=== PATIENT | male | born 1970 | race Hispanic/Latino ===

== ENCOUNTER 2016-12-16 09:50 | Emergency (ER) | payer SELFPAY ==
[2016-12-16] MEDS ORDERED: Sodium Chloride 0.9% 1,000 ML ONE ×2 (10:06→10:41)
[2016-12-16] MEDS ORDERED: Ondansetron HCl/PF 4 MG/2 ML Vial ONE (10:28)
[2016-12-16] MEDS ORDERED: Pantoprazole 40 MG VIAL ONE (10:28)
[2016-12-16 10:30] LABS: Base Excess 4.3 mEq/L (0 (+/- 2.5)); Hemoglobin (Hb) 19.8 g/dL (13.1-17.2)
[2016-12-16 10:42] LABS: #Basophils 0.1 thou/uL (0.0-0.2); #Eosinphils 0.1 thou/uL (0.0-0.7); #Monocytes 1.1 thou/uL (0.11-0.59); #Neutrophils 11.3 thou/uL (1.40-6.50); %Basophils 0.9 % (0.0-1.0); %Eosinophils 0.7 % (0.0-10.0); %Lymphocytes 13.4 % (21.0-51.0); %Monocytes 7.5 % (0.0-10.0); %Neutrophils 77.4 % (42.0-75.0); Hemoglobin 20.1 g/dL (14.0-18.0); Mean Corpuscular HGB CONC 35.2 g/dL (32.0-36.0); Mean Corpuscular Hemoglobin 29.6 pg (27.0-31.0); Mean Corpuscular Volume 84.1 fl (80.0-94.0); Mean Platelet Volume 9.2 fL (7.4-10.4); Platelet Count 385 thou/uL (130-400); Red Blood Cell (RBC) Count 6.79 mill/uL (4.70-6.10); White Blood Cell (WBC) Count 14.6 thou/uL (4.8-10.8)
[2016-12-16 10:46] LABS: ALT (SGPT) 22 U/L (8-55); AST (SGOT) 19 U/L (5-34); Albumin 5.1 g/dL (3.5-5.0); Alkaline Phosphatase 117 U/L (40-150); Anion Gap 23 mmol/L (10-20); BUN (Urea Nitrogen) 21 mg/dL (8.9-20.6); Bilirubin, Total 1.4 mg/dL (0.2-1.2); Calc. Creatinine Clearance 0 mL/min (70-130); Calcium 10.5 mg/dL (7.8-10.44); Carbon Dioxide 24 mmol/L (22-29); Chloride 89 mmol/L (98-107); Estimated GFR-MDRD 40; Globulin 4.5 g/dL (2.4-3.5); Glucose 447 mg/dL (70-105); Lipase 20 U/L (8-78); Potassium 4.4 mmol/L (3.5-5.1); Protein, Total 9.6 g/dL (6.0-8.3); Sodium 132 mmol/L (136-145)
[2016-12-16] MEDS ORDERED: Insulin Regular 300 UNITS/3 ML VIAL ONE (10:46)
[2016-12-16 10:56] LABS: Troponin I 0.014 ng/mL (< 0.028)
--- NOTE | 2016-12-16 11:30 | CT ---
CT ABDOMEN AND PELVIS WITHOUT CONTRAST: Comparison: None. History: Five episodes of vomiting clear fluids with weakness and abdominal pain in the right side o f the abdomen. Technique: Multiple contiguous axial images were obtained in a CT of the abdomen and pelvis without contrast. Coronal reformats were performed. FINDINGS: The liver, gallbladder, kidneys, adrenal glands, spleen, and pancreas are unremarkable in this limit ed noncontrast examination. No free air, free fluid, or stranding changes are seen in the abdomen or pelvis. The large and small bowel are unremarkable. The appendix is normal. No abdominal or pelvic lymphaden opathy are seen. Mild degenerative changes are seen in the spine. The visualized inferior thorax and abdominal wall s oft tissues are unremarkable. IMPRESSION: No evidence of acute intraabdominal/pelvic abnormality. POS: [facility]
== END 2016-12-16 12:15 | disposition left against medical advice (07) ==
LOC: NAV ERS 09:50
DX: E86.0 Dehydration (principal); N28.9 Disorder of kidney and ureter, unspecified; E11.65 Type 2 diabetes mellitus with hyperglycemia; F17.210 Nicotine dependence, cigarettes, uncomplicated
CPT/HCPCS: 36416; 74176; 80053; 82010; 82248; 82550; 82805; 83690; 84484; 85025; 93005; 96374; 96375; C9113; J1815; J2405; J7050

== ENCOUNTER 2020-04-18 21:30 | Emergency (ER) | payer SELFPAY ==
[~2020-04-18 21:30] MED LIST: Iopamidol 370 76% 100 ML VIAL ONE
[2020-04-18] MEDS ORDERED: Ibuprofen 200 MG TAB ONE (21:53)
[2020-04-18 22:03] LABS: Band 16 % (5-11); Hemoglobin 12.6 g/dL (14.0-18.0); Hypochromia SLIGHT = 6-15 cells (100X) (0-5/hpf); Lymphocytes 14 % (21-51); MDiff Complete? YES; Mean Corpuscular HGB CONC 32.8 g/dL (32.0-36.0); Mean Corpuscular Hemoglobin 33.6 pg (27.0-31.0); Mean Platelet Volume 7.1 fL (7.4-10.4); Metamyelocyte 3 % (0-0); Microcytosis SLIGHT = 6-15 cells (100X) (0-5/hpf); Monocytes 6 % (0-10); Myelocyte 1 % (0-0); Neutrophil 60 % (42-75); Platelet Count 227 thou/uL (130-400); Platelet Morphology Comment Appears Adequate; Red Blood Cell (RBC) Count 3.75 mill/uL (4.70-6.10); White Blood Cell (WBC) Count 21.4 thou/uL (4.8-10.8)
--- NOTE | 2020-04-18 22:08 | RAD ---
XR Chest 1 View Portable HISTORY: Chest pain, cough COMPARISON: None FINDINGS: The heart size is normal. The lungs are without focal areas of consolidation, pneumothorax or pleural effusions. IMPRESSION: No radiographic evidence of acute cardiopulmonary process.
[2020-04-18 22:10] LABS: ALT (SGPT) 66 U/L (8-55); AST (SGOT) 63 U/L (5-34); Albumin 2.4 g/dL (3.5-5.0); Alkaline Phosphatase 625 U/L (40-110); Anion Gap 16 mmol/L (10-20); BUN (Urea Nitrogen) 20 mg/dL (8.9-20.6); Bilirubin, Total 14.8 mg/dL (0.2-1.2); Calc. Creatinine Clearance 0 mL/min (70-130); Calcium 7.9 mg/dL (7.8-10.44); Carbon Dioxide 23 mmol/L (22-29); Chloride 97 mmol/L (98-107); Estimated GFR-MDRD Greater than 90; Globulin 4.2 g/dL (2.4-3.5); Glucose 200 mg/dL (70-105); Potassium 4.6 mmol/L (3.5-5.1); Protein, Total 6.6 g/dL (6.0-8.3); Sodium 131 mmol/L (136-145)
[2020-04-18] MEDS ORDERED: Sodium Chloride 0.9% 2,000 ML ONE (22:10)
[2020-04-18] MEDS ORDERED: Piperacillin/Tazobactam 4.5 GM VIAL ONE (22:16)
[2020-04-18] MEDS ORDERED: Sodium Chloride 0.9% 100 ML ONE (22:18)
[2020-04-18] MEDS ORDERED: Sodium Chloride 0.9% 500 ML ONE (22:20)
[2020-04-18] MEDS ORDERED: Morphine 4 MG/ML VIAL ONE (22:38)
[2020-04-18] MEDS ORDERED: Ondansetron PF 4 MG/2 ML Vial ONE (22:38)
--- NOTE | 2020-04-18 23:16 | CT ---
CT Abdomen Pelvis W Con HISTORY: Fever. Stage IV liver cancer, abdominal pain and jaundice. Elevated WBCs COMPARISON: CT abdomen pelvis without contrast dated 12/16/2016 FINDINGS: There is a small left pleural effusion. A 7 mm right paracardiac lymph node is noted. No free air is seen in the abdomen or pelvis. There is free fluid in the abdomen and pelvis consistent with ascites. There is an enlarged 1 cm aortocaval lymph node. A biliary stent is in place. Multiple liver masses and biliary ductal dilatation are seen in the live r. The largest of the masses measures 6.5 cm. The spleen is enlarged measuring 14 cm in length. There is a 4.2 cm mass in the pancreatic head. The adrenal glands and kidneys are normal. There are vascular calcifications without evidence of aneu rysmal dilatation of the abdominal aorta. The small bowel loops are not abnormally dilated. There is fecal material in the colon and rectum. No osteolytic or osteoblastic lesions are seen. IMPRESSION: Findings are consistent with malignancy/metastatic disease.
[2020-04-19] LABS: Lactic Acid 2.5 mmol/L (0.5-2.2)
[2020-04-19 01:40] LABS: Troponin I Less than 0.010 ng/mL (< 0.028)
== END 2020-04-19 01:20 | disposition short-term general hospital (02) ==
LOC: NAV ERS 21:30
DX: A41.9 Sepsis, unspecified organism (principal); J90 Pleural effusion, not elsewhere classified; C25.9 Malignant neoplasm of pancreas, unspecified; E11.9 Type 2 diabetes mellitus without complications; F17.210 Nicotine dependence, cigarettes, uncomplicated; Z79.899 Other long term (current) drug therapy
CPT/HCPCS: 36415; 71045; 74177; 80053; 83605; 84484; 85025; 85379; 87040; 87077; 87149; 93005; 96365; 96366; 96367; 96375; J2270; J2405; J2543; J3370; J3490; J7030; J7050; Q9967